=== PATIENT | male | born 1955 | race Caucasian/White ===

== ENCOUNTER 2017-09-24 21:59 | Inpatient (IN) | payer OTHER ==
[~2017-09-24] VITALS: Ht 167.6 cm; Wt 68.2 kg
[2017-09-25] VITALS (10 sets, daily range): BP systolic 91–129; BP diastolic 56–77; PULSE 99–115; RESP 17–20; TEMP 98.3; Ht 167.6 cm; Wt 68.2 kg
[2017-09-25] MEDS ORDERED: SOD CHLORIDE 0.9% 500 ML IV STA (01:38)
[2017-09-25 02:42] LABS: CALCIUM 8.7 mg/dl (8.4-10.2); CREATININE 1.57 mg/dl (0.61-1.24)
[2017-09-25 02:52] LABS: ABNORMAL IP MESSAGE 1; BASOPHIL # 0.1 10^3/ul (0.0-0.1); BASOPHILS % 0.3 % (0.0-2.0); HEMATOCRIT 42.4 % (42.0-52.0); HEMOGLOBIN 15.3 g/dl (14.0-18.0); LYMPHOCYTES # 0.4 10^3/ul (0.8-2.9); MEAN CORPUSCULAR HEMOGLOBIN 34.8 pg (29.0-33.0); MEAN CORPUSCULAR HGB CONC 36.1 g/dl (32.0-37.0); MEAN CORPUSCULAR VOLUME 96.4 fl (82.0-101.0); MEAN PLATELET VOLUME 11.4 fl (7.4-10.4); MONOCYTE # 0.5 10^3/ul (0.3-0.9); MONOCYTES % 2.6 % (0.0-11.0); NEUTROPHIL # 16.4 10^3/ul (1.6-7.5); NEUTROPHILS % 93.2 % (39.0-77.0); PLATELET COUNT 68 10^3/UL (140-415); POSITIVE DIFF @See below; RED CELL DISTRIBUTION WIDTH 14.1 % (11.5-14.5); WHITE BLOOD COUNT 17.6 10^3/ul (4.8-10.8)
[2017-09-25 02:54] LABS: TROPONIN-I 0.017 ng/ml (0.00-0.12)
[2017-09-25] MEDS ORDERED: SODIUM CHLORIDE 0.9% 1L BAG IV* STA (02:57)
[2017-09-25] MEDS ORDERED: CEFEPIME 2GM/50 ML (PMX) 50 ML IVPB ONE (03:02)
--- NOTE | 2017-09-25 03:29 | RADRPT ---
PROCEDURE: XR Chest. CLINICAL INDICATION: Dyspnea. TECHNIQUE: Single frontal view of the chest. COMPARISON: None. FINDINGS: Cardiomegaly and tortuous calcified thoracic aorta. Hypoinflated lungs accentuate pulmonary vascular markings. Mild vascular crowding at lung bases. The lungs are clear. No signs of pleural fluid or p neumothorax are seen. The osseous structures and soft tissues are unremarkable. IMPRESSION: 1. Hypoinflated lungs with mild vascular crowding at lung bases. 2. Otherwise, no acute process in the chest. RPTAT: [facility]U Physician Dez Date Time Electronically viewed and signed by Physician Dez on 09/25/2017 03:29 RS/
--- NOTE | 2017-09-25 03:29 | ERD ---
ER Documentation Chief Complaint Chief Complaint FEVER WITH SOB SINCE YESTERDAY. BODY ACHES. COUGH HPI Very pleasant 62-year-old male with fever shortness breath since yesterday. He does have body aches and productive cough. No nausea no vomiting no chills. Patient said he had alternating fevers and chills over the past 48 hours. Denies any other current complaints. ROS All systems reviewed and are negative except as per history of present illness. Allergies Allergies: Coded Allergies: No Known Allergy (Unverified , 09/24/17) PMhx/Soc Medical and Surgical Hx: pt denies Surgical Hx History of Surgery: No Anesthesia Reaction: No Hx Neurological Disorder: No Hx Respiratory Disorders: No Hx Cardiac Disorders: No Hx Psychiatric Problems: No Hx Miscellaneous Medical Probl: Yes (DM) Hx Alcohol Use: No Hx Substance Use: No Hx Tobacco Use: Yes (2 sticks/day) Smoking Status: Current every day smoker Physical Exam Vitals Vital Signs Date Time Temp Pulse Resp B/P Pulse Ox O2 Delivery O2 Flow Rate FiO2 09/25/17 03:24 98.3 108 20 92/64 98 Nasal Cannula 2.0 09/25/17 02:04 98.6 115 20 85/63 96 Nasal Cannula 2.0 09/25/17 02:01 Nasal Cannula 2 09/25/17 01:05 101.0 122 28 88/58 96 Room Air 09/24/17 22:27 103.5 130 28 133/74 96 Physical Exam Const: [] Head: Atraumatic Eyes: Normal Conjunctiva ENT: Normal External Ears, Nose and Mouth. Neck: Full range of motion..~ No meningismus. Resp: Clear to auscultation bilaterally Cardio: Regular rate and rhythm, no murmurs Abd: Soft, non tender, non distended. Normal bowel sounds Skin: No petechiae or rashes Back: No midline or flank tenderness Ext: No cyanosis, or edema Neur: Awake and alert Psych: Normal Mood and Affect Result Diagram: 09/25/1713909/25/17139 Results 24 hrs Laboratory Tests Test 09/25/17 01:40 White Blood Count 17.610^3/ul Red Blood Count 4.4010^6/ul Hemoglobin 15.3g/dl Hematocrit 42.4% Mean Corpuscular Volume 96.4fl Mean Corpuscular Hemoglobin 34.8pg Mean Corpuscular Hemoglobin Concent 36.1g/dl Red Cell Distribution Width 14.1% Platelet Count 6810^3/UL Mean Platelet Volume 11.4fl Neutrophils % 93.2% Lymphocytes % 2.0% Monocytes % 2.6% Eosinophils % 0.0% Basophils % 0.3% Nucleated Red Blood Cells % 0.0/100WBC Neutrophils # 16.410^3/ul Lymphocytes # 0.410^3/ul Monocytes # 0.510^3/ul Eosinophils # 0.010^3/ul Basophils # 0.110^3/ul Nucleated Red Blood Cells # 0.010^3/ul Sodium Level 135mmol/L Potassium Level 3.0mmol/L Chloride Level 105mmol/L Carbon Dioxide Level 16mmol/L Anion Gap 17 Blood Urea Nitrogen 21mg/dl Creatinine 1.57mg/dl Glucose Level 262mg/dl Lactic Acid Level 6.0mmol/L Calcium Level 8.7mg/dl Troponin I 0.017ng/ml Current Medications Medications (Trade) Dose Ordered Sig/Vu Route PRN Reason Start Time Stop Time Status Last Admin Dose Admin Sodium Chloride (NS) 500 ml @ 500 mls/hr Q1H STAT IV 09/25/17 01:38 09/25/17 02:37 DC 09/25/17 01:59 Sodium Chloride 2120 ml 2,120 ml BOLUS OVER 2 HOURS STAT IV* 09/25/17 02:57 09/25/17 03:03 DC 09/25/17 03:06 Cefepime HCl 50 ml @ 100 mls/hr ONCE ONCE IVPB 09/25/17 03:02 09/25/17 03:31 09/25/17 03:06 Vancomycin HCl (Vancocin) 250 ml @ 125 mls/hr ONCE ONCE IVPB 09/25/17 03:30 09/25/17 05:29 Procedures/MDM EKG: Rate/Rhythm: [Normal Sinus Rhythm] QRS, ST, T-waves: [No changes consistent w/ acute ischemia] Impression: [No evidence of ischemia or arrhythmia] Chest X-ray 1V Interpreted by me: Soft Tissue: No acute abnormalities Bones: No acute abnormalities Mediastinum/Cardiac Silhouette/Lungs: [No acute abnormalities] Patient's infectious symptoms have not stabilized and the patient is at risk of rapid decompensation. The patient will be admitted for careful hydration, antibiotic therapy, and infectious source control. Severe Sepsis Assessment: Infectious Source: Unknown End organ damage indicated by: [Lactate > 2.0 mmol/L Severe Sepsis Managment: Blood Cultures X 2 before broad spectrum antibiotics initiated within 3 hours of recognition. 30 ml/kg NS bolus Completed Initial Lactate: 6.0 Repeat Lactate pending Critical Care: Time: 45 minutes Treatments/Evaluations: Emergent fluid management, while maintaining close respiratory support. Immediate broad spectrum antibiotic therapy. Simultaneous assessment for possible sources in order to direct therapy. Consideration for invasive and chemical support to prevent respiratory or cardiac collapse. Septic Shock Assessment (1 hour post 30 ml/kg fluid bolus): Hypotension (SBP < 90 or 40 mmHg drop, MAP < 65): [No] Lactic acid > 4.0 yes Perfusion Reassessment for Septic Shock: Temp [98.6, Pulse [94, RR 16, BP 104/71 Heart Exam: [Tachycardic] Lung Exam: [No Crackles] Capillary Refill: [Delayed] Peripheral Pulses: [Radially present] Skin: [Mottled, pale] Accepting Care Team: Current data and ongoing care discussed. Time: 3 am Primary Provider: Hospitalist Consulting: [XOXOXO] Outstanding Data: none Departure Diagnosis: Primary Impression: Sepsis Sepsis type: sepsis due to unspecified organism Qualified Code: A41.9 - Sepsis, due to unspecified organism Condition: Stable SUSAN NGUYEN Sep 25, 2017 03:29
[2017-09-25] MEDS ORDERED: VANCOMYCIN 1 GM (PMX) 250 ML IVPB ONE (03:30)
[2017-09-25] MEDS ORDERED: IBUP-1542 PO (03:54)
[2017-09-25] MEDS ORDERED: GLIP5TAB13 PO (03:54)
[2017-09-25] MEDS ORDERED: METF500T4 PO (03:54)
[2017-09-25] MEDS ORDERED: POTASSIUM CHLORIDE (SR) 20 MEQ TAB PO ONE (06:25)
[2017-09-25] MEDS ORDERED: GLUCOSE GEL 15 GRAM TUBE PO PRN ×2 (06:30)
[2017-09-25] MEDS ORDERED: ALBUTEROL/IPRATROPIUM (NEB) 3 ML AMP HHN PRN (06:30)
[2017-09-25] MEDS ORDERED: GLUCAGON 1 MG INJ IM PRN (06:30)
[2017-09-25] MEDS ORDERED: GLUCOSE GEL 15 GRAM TUBE BUCCAL PRN (06:30)
[2017-09-25] MEDS: SOD CHLORIDE 0.9% 1,000 ML IV SCH ×2 (06:30→16:11)
[2017-09-25] MEDS ORDERED: NACL 0.9% 3 ML SYG IV SCH (06:30)
[2017-09-25] MEDS ORDERED: DEXTROSE 50% 50 ML SYRINGE IV PRN ×2 (06:30)
--- NOTE | 2017-09-25 06:43 | HP ---
Date/Time of Note Date/Time of Note DATE: 09/25/17 TIME: 06:35 Assessment/Plan VTE Prophylaxis VTE Prophylaxis Intervention: SCD's Assessment/Plan Assessment/Plan 1. Sepsis, as evidenced by fever, leukocytosis and tachycardia with lactic acidosis, most likely secondary to URI vs early pneumonia -IV antibiotics -IV fluid -Follow-up culture results including respiratory culture if possible -Breathing treatments as needed -Check for influenza A & B 2. Presumed acute kidney injury -Continue IV fluid for now -If no improvement in a.m., will obtain a renal ultrasound and nephrology consult 3. Metabolic acidosis, secondary to above -Continue IV fluids and antibiotics 4 Diabetes, with hyperglycemia -Check A1c -Insulin while in-house 5. Hypokalemia -Replete 6. Thrombocytopenia, possibly ITP vs related to sepsis -Start workup with abdominal ultrasound for evaluation of splenomegaly -Additional workup as needed HPI/ROS Admit Date/Time Admit Date/Time Hx of Present Illness This is a 62-year-old male with a history of diabetes who presented to the emergency department complaining of shortness of breath, fever and cough 1 day. Cough is productive of yellowish/brownish sputum. Denied chest pain, nausea or vomiting. When he presented to the ER, he was febrile with a temperature of 103.5 and a tachycardic with a heart rate of 130. BP was within acceptable range. Labs shows a WBC of 17.6, PLT 68, bicarb 16, potassium 3, creatinine 1.57, glucose 262. Initial lactic acid was 6 which trended down to 3.1. Chest x-ray shows hypoinflated lungs with mild vascular crowding at lung bases. Urinalysis is pending. . PMH/Family/Social Social History Smoking Status: Current every day smoker Exam/Review of Systems Vital Signs Vitals Vital Signs Date Time Temp Pulse Resp B/P Pulse Ox O2 Delivery O2 Flow Rate FiO2 09/25/17 05:34 98.3 104 18 86/64 96 Nasal Cannula 2.0 Exam Constitutional: alert, oriented, well developed Head: atraumatic, normocephalic Eyes: EOMI Respiratory: diminished breath sounds Cardiovascular: other (Tachycardic with regular rhythm) Gastrointestinal: non-tender, soft Extremities: normal pulses Labs Result Diagram: 09/25/1713909/25/17139 Medications Medications Current Medications Sodium Chloride (NS) 1,000 ml @ 100 mls/hr Q10H IV Last administered on t 06:30; Admin Dose 100 MLS/HR; Start 09/25/17 at 06:11; Stop 09/26/17 at 23:00 Acetaminophen (Tylenol Tab) 650 mg Q6H PRN PO PAIN LEVEL 1-3 OR FEVER; Start 09/25/17 at 06:30 Morphine Sulfate 2 mg 2 mg Q4H PRN IV SEVERE PAIN LEVEL 7-10; Start 09/25/17 at 06:30 Levofloxacin/ Dextrose (Levaquin 500mg/ D5W 100 ml (Pmx)) 100 ml @ 100 mls/hr DAILY IVPB ; Start 09/25/17 at 09:00 Diagnostic Test (Pha) (Accu-Chek) 1 ea 02 XX ; Start 09/26/17 at 02:00 Insulin Glargine (Lantus) 12 unit DAILY@08 SC ; Start 09/25/17 at 08:00; Status UNV Miscellaneous Information 1 ea NOTE XX ; Start 09/25/17 at 06:30 Glucose (Glutose) 15 gm Q15M PRN PO DECREASED GLUCOSE; Start 09/25/17 at 06:30 Glucose (Glutose) 22.5 gm Q15M PRN PO DECREASED GLUCOSE; Start 09/25/17 at 06: 30 Dextrose (D50w Syringe) 25 ml Q15M PRN IV DECREASED GLUCOSE; Start 09/25/17 at 06:30 Dextrose (D50w Syringe) 50 ml Q15M PRN IV DECREASED GLUCOSE; Start 09/25/17 at 06:30 Glucagon (Glucagen) 1 mg Q15M PRN IM DECREASED GLUCOSE; Start 09/25/17 at 06: 30 Glucose (Glutose) 15 gm Q15M PRN BUCCAL DECREASED GLUCOSE; Start 09/25/17 at 06:30 SUSAN DE DIOS MD Sep 25, 2017 06:43
[2017-09-25] MEDS ORDERED: SOD CHLORIDE 0.9% 500 ML IV ONE (08:00)
[2017-09-25] MEDS: INSULIN ASPART [NOVOLOG] 3 ML PEN SC SCH ×7 (08:00→21:00)
[2017-09-25] MEDS: INSULIN GLARGINE [LANtus] 3 ML PEN SC SCH (08:00)
[2017-09-25 08:33] LABS: ABNORMAL IP MESSAGE 1; BASOPHIL # 0.1 10^3/ul (0.0-0.1); BASOPHILS % 0.3 % (0.0-2.0); EOSINOPHILS % 0.1 % (0.0-7.0); HEMATOCRIT 38.4 % (42.0-52.0); HEMOGLOBIN 13.6 g/dl (14.0-18.0); LYMPHOCYTES # 0.6 10^3/ul (0.8-2.9); LYMPHOCYTES % 3.1 % (15.0-51.0); MEAN CORPUSCULAR HEMOGLOBIN 34.9 pg (29.0-33.0); MEAN CORPUSCULAR HGB CONC 35.4 g/dl (32.0-37.0); MEAN CORPUSCULAR VOLUME 98.5 fl (82.0-101.0); MONOCYTE # 1.1 10^3/ul (0.3-0.9); MONOCYTES % 5.4 % (0.0-11.0); NEUTROPHIL # 17.5 10^3/ul (1.6-7.5); PLATELET COUNT 57 10^3/UL (140-415); POSITIVE DIFF @See below; RED CELL DISTRIBUTION WIDTH 14.3 % (11.5-14.5); WHITE BLOOD COUNT 19.4 10^3/ul (4.8-10.8)
[2017-09-25 09:00] LABS: ALBUMIN 2.3 g/dl (3.3-4.9); ALBUMIN/GLOBULIN RATIO 0.58; BILIRUBIN,DIRECT 0.6 mg/dl (0.00-0.20); BILIRUBIN,INDIRECT 1.8 mg/dl (0-1.1); BILIRUBIN,TOTAL 2.4 mg/dl (0.2-1.3); CALCIUM 7.3 mg/dl (8.4-10.2); CREATININE 1.27 mg/dl (0.61-1.24); MAGNESIUM 1.2 mg/dl (1.7-2.5); PHOSPHORUS 3.5 mg/dl (2.5-4.9); POTASSIUM 3.7 mmol/L (3.5-5.1); TOTAL PROTEIN 6.2 g/dl (6.1-8.1)
[2017-09-25] MEDS: LEVOFLOXACIN 500MG/D5W (PMX) 100 ML IVPB SCH (09:39)
--- NOTE | 2017-09-25 11:45 | CONS ---
Date/Time of Note Date/Time of Note DATE: 09/25/17 TIME: 11:44 Assessment/Plan Assessment/Plan Additional Assessment/Plan 1. Acute kidney injury Non oliguric Due to ATN from sepsis 2. Sepsis 3. Metabolic acidosis 4. hypokalemia 5. Diabetes melitus with Hyperglycemia 6. Thrombocytopenia Plan : pt received IVF NS, IV abx cefepime and vancomycin in ED< now on IV levaquin, renally dose all abx Expecting Cr to improve with IV fluids and IV abx treatment NO need for renal US at this time, we will monitor it WORK UP FOR thrombocytopenia as per PMD will continue to follow up, HIV< hepatitis panel, Consultation Date/Type/Reason Admit Date/Time 09/25/2017 Date of Consultation: Sep 25, 2017 Type of Consultation: NEPHROLOGY Reason for Consultation acute kidney injury, Metabolic acidosis Referring Provider: SUSAN DE DIOS MD Hx of Present Illness 62-year-old male with a history of diabetes came with shortness of breath, fever and cough 1 day. pt was febrile with Temp 103.5 and a tachycardic with a heart rate of 130. Labs shows a WBC of 17.6, PLT 68, bicarb 16, potassium 3, creatinine 1.57, glucose 262. Initial lactic acid was 6 which trended down to 3.1. Chest x-ray shows hypoinflated lungs with mild vascular crowding at lung bases. Renal has been consulted for MELISSA, Metabolic acidosis. . Constitutional: no complaints Eyes: no complaints ENT: congestion Respiratory: cough, pleuritic pain, shortness of breath Gastrointestinal: no complaints Genitourinary: dysuria Musculoskeletal: back pain Skin: no complaints Neurologic: no complaints Endocrine: no complaints Lymphatic: no complaints Psychological: no complaints Immunologic: no complaints Past Medical History Medical History: diabetes, hypertension Past Surgical History Past Surgical Hx: no surgical history Family History Significant Family History: no pertinent family hx Social History Alcohol Use: none Smoking Status: Current every day smoker Drug Use: none Exam/Review of Systems Vital Signs Vitals Vital Signs Date Time Temp Pulse Resp B/P Pulse Ox O2 Delivery O2 Flow Rate FiO2 09/25/17 11:22 98.2 98 17 99/62 96 09/25/17 07:19 Room Air 09/25/17 05:34 2.0 Exam Constitutional: alert Psych: no complaints Head: normocephalic Eyes: nl conjunctiva ENMT: nl external ears & nose Neck: non-tender, supple Respiratory: clear to auscultation, diminished breath sounds, normal air movement Cardiovascular: other (tachycardia ), regular rate and rhythm Gastrointestinal: non-tender, soft Musculoskeletal: nl extremities to inspection, nl gait and stance Extremities: normal pulses Neurological: [employer] II-XII intact, nl mental status, nl speech, nl strength Results Result Diagram: 09/25/17 0757 09/25/17 0757 Results 24 hrs Laboratory Tests Test 09/25/17 01:40 09/25/17 04:10 09/25/17 05:37 09/25/17 07:57 White Blood Count 17.6 H 19.4 H Red Blood Count 4.40 L 3.90 L Hemoglobin 15.3 13.6 L Hematocrit 42.4 38.4 L Mean Corpuscular Volume 96.4 98.5 Mean Corpuscular Hemoglobin 34.8 H 34.9 H Mean Corpuscular Hemoglobin Concent 36.1 35.4 Red Cell Distribution Width 14.1 14.3 Platelet Count 68 L 57 L Mean Platelet Volume 11.4 H 12.0 H Neutrophils % 93.2 H 90.0 H Lymphocytes % 2.0 L 3.1 L Monocytes % 2.6 5.4 Eosinophils % 0.0 0.1 Basophils % 0.3 0.3 Nucleated Red Blood Cells % 0.0 0.0 Neutrophils # 16.4 H 17.5 H Lymphocytes # 0.4 L 0.6 L Monocytes # 0.5 1.1 H Eosinophils # 0.0 0.0 Basophils # 0.1 0.1 Nucleated Red Blood Cells # 0.0 0.0 Sodium Level 135 139 Potassium Level 3.0 L 3.7 Chloride Level 105 111 H Carbon Dioxide Level 16 L 21 Anion Gap 17 H 11 Blood Urea Nitrogen 21 H 21 H Creatinine 1.57 H 1.27 H Glucose Level 262 H 172 Lactic Acid Level 6.0 *H 3.1 *H 3.1 *H Calcium Level 8.7 7.3 L Troponin I 0.017 Hemoglobin A1c 7.4 H Phosphorus Level 3.5 Magnesium Level 1.2 L Total Bilirubin 2.4 H Direct Bilirubin 0.60 H Indirect Bilirubin 1.8 H Aspartate Amino Transf (AST/SGOT) 37 Alanine Aminotransferase (ALT/SGPT) 38 Alkaline Phosphatase 67 Total Protein 6.2 Albumin 2.3 L Globulin 3.90 H Albumin/Globulin Ratio 0.58 Test 09/25/17 09:43 Bedside Glucose 143 Medications Medications Current Medications Sodium Chloride (NS) 1,000 ml @ 100 mls/hr Q10H IV Last administered on 06:30; Admin Dose 100 MLS/HR; Start 09/25/17 at 06:11; Stop 09/26/17 at 23:00 Acetaminophen (Tylenol Tab) 650 mg Q6H PRN PO PAIN LEVEL 1-3 OR FEVER; Start 09/25/17 at 06:30 Morphine Sulfate 2 mg 2 mg Q4H PRN IV SEVERE PAIN LEVEL 7-10; Start 09/25/17 at 06:30 Levofloxacin/ Dextrose (Levaquin 500mg/ D5W 100 ml (Pmx)) 100 ml @ 100 mls/hr DAILY IVPB Last administered on 09/25/17 09:39; Admin Dose 100 MLS/HR; Start 09/25/17 at 09:00 Diagnostic Test (Pha) (Accu-Chek) 1 ea 02 XX ; Start 09/26/17 at 02:00 Insulin Glargine (Lantus) 12 unit DAILY@08 SC Last administered on 09/25/17 08:00; Admin Dose 12 UNIT; Start 09/25/17 at 08:00 Miscellaneous Information 1 ea NOTE XX ; Start 09/25/17 at 06:30 Glucose (Glutose) 15 gm Q15M PRN PO DECREASED GLUCOSE; Start 09/25/17 at 06:30 Glucose (Glutose) 22.5 gm Q15M PRN PO DECREASED GLUCOSE; Start 09/25/17 at 06: 30 Dextrose (D50w Syringe) 25 ml Q15M PRN IV DECREASED GLUCOSE; Start 09/25/17 at 06:30 Dextrose (D50w Syringe) 50 ml Q15M PRN IV DECREASED GLUCOSE; Start 09/25/17 at 06:30 Glucagon (Glucagen) 1 mg Q15M PRN IM DECREASED GLUCOSE; Start 09/25/17 at 06: 30 Glucose (Glutose) 15 gm Q15M PRN BUCCAL DECREASED GLUCOSE; Start 09/25/17 at 06:30 ALAN DAHL MD Sep 25, 2017 11:45
[2017-09-25 14:08] LABS: HAAIG REFLEX REFLEX FILED
[2017-09-25 14:58] LABS: COLLAGEN/ADP 164 Secs. (40-147)
[2017-09-25] MEDS: morphine 2 MG INJ IV PRN ×2 (15:25→22:21)
[2017-09-25 15:34] LABS: HEPATITIS B CORE ANTIBODY NEGATIVE (NEGATIVE)
[2017-09-25 15:50] LABS: FOLATE 5.2 ng/ml (2.8-20.0)
[2017-09-25] MEDS: ACETAMINOPHEN 325 MG TAB PO PRN (22:21)
[2017-09-26] VITALS (12 sets, daily range): BP systolic 115–133; BP diastolic 69–85; PULSE 89–102; RESP 17–20
[2017-09-26] MEDS: ACCU-CHEK XX SCH (00:08)
[2017-09-26] MEDS: morphine 2 MG INJ IV PRN ×2 (02:21→07:05)
[2017-09-26] MEDS: SOD CHLORIDE 0.9% 1,000 ML IV SCH ×3 (02:22→21:45)
[2017-09-26] MEDS: ACETAMINOPHEN 325 MG TAB PO PRN ×3 (07:05→21:53)
[2017-09-26] MEDS: INSULIN ASPART [NOVOLOG] 3 ML PEN SC SCH ×7 (07:55→21:00)
[2017-09-26 08:24] LABS: ABNORMAL IP MESSAGE 1; BASOPHIL # 0.1 10^3/ul (0.0-0.1); BASOPHILS % 0.5 % (0.0-2.0); EOSINOPHILS % 0.2 % (0.0-7.0); HEMATOCRIT 38.9 % (42.0-52.0); LYMPHOCYTES # 0.7 10^3/ul (0.8-2.9); LYMPHOCYTES % 7.5 % (15.0-51.0); MEAN CORPUSCULAR HEMOGLOBIN 34.9 pg (29.0-33.0); MONOCYTES % 9.9 % (0.0-11.0); NEUTROPHIL # 7.8 10^3/ul (1.6-7.5); NEUTROPHILS % 81.4 % (39.0-77.0); PLATELET COUNT 51 10^3/UL (140-415); POSITIVE DIFF @See below; RED BLOOD COUNT 4.01 10^6/ul (4.70-6.10); RED CELL DISTRIBUTION WIDTH 14.3 % (11.5-14.5); WHITE BLOOD COUNT 9.6 10^3/ul (4.8-10.8)
[2017-09-26] MEDS: LEVOFLOXACIN 500MG/D5W (PMX) 100 ML IVPB SCH (08:29)
[2017-09-26 08:36] LABS: CALCIUM 7.7 mg/dl (8.4-10.2); CREATININE 0.81 mg/dl (0.61-1.24); MAGNESIUM 1.3 mg/dl (1.7-2.5); PHOSPHORUS 2.6 mg/dl (2.5-4.9); POTASSIUM 3.2 mmol/L (3.5-5.1)
--- NOTE | 2017-09-26 08:42 | RADRPT ---
PROCEDURE: US Abdomen and Retroperitoneum. CLINICAL INDICATION: Abdominal pain. TECHNIQUE: Multiple real-time longitudinal and transverse images were acquired of the patient's ab domen and retroperitoneum utilizing a curved array transducer. COMPARISON: 09/26/2017. FINDINGS: The liver is normal in size and normal in echogenicity. The liver has a normal smooth surface. Ther e is no focal hepatic lesion. Color Doppler and pulsed Doppler sonography demonstrate normal antegra de flow in the portal vein. The gallbladder is normal with no stones or wall thickening. The bile ducts are normal with the common bile duct measuring 7.1 mm in diameter. The spleen is normal in size. There is no focal splenic lesion. The pancreas and abdominal aorta are not visualized due to overlying bowel gas. There is no ascites. There is a right pleural effusion. The right kidney measures 11.3 cm and the left kidney measures 12.1 cm. There is no renal mass. There is no hydronephrosis or calculus. IMPRESSION: 1. Pancreas and abdominal aorta not visualized. 2. Right pleural effusion. 3. Otherwise normal ultrasound of the abdomen and retroperitoneum. RPTAT: QQ .Stevie Gore MD, Date Time Electronically viewed and signed by .Stevie Gore MD, on 09/26/2017 08:28 .R/
[2017-09-26] MEDS: INSULIN GLARGINE [LANtus] 3 ML PEN SC SCH (08:44)
[2017-09-26] MEDS ORDERED: VANCOMYCIN IV PER PHARMACY XX SCH (11:00)
--- NOTE | 2017-09-26 11:19 | PN ---
Date/Time of Note Date/Time of Note DATE: 09/26/17 TIME: 11:11 Assessment/Plan VTE Prophylaxis VTE Prophylaxis Intervention: ambulation Lines/Catheters IV [facility]ter Type (from [facility]): Peripheral IV Urinary Cath still in place: No Assessment/Plan Chief Complaint/Hosp Course 62-year-old male with a history of diabetes presented with shortness of breath, fever and cough 1 day. 1. Status post sepsis with gram-negative bacteremia, unknown etiology. Most likely suspected pneumonia. -Change antibiotics to Zosyn/vancomycin. Follow-up final cultures. 2. Right pleural effusion per chest x-ray with possible superimposed pneumonia. -Obtain a CT chest to reevaluate. 3. Acute kidney injury, prerenal, secondary to hemodynamics. Resolved. -Continue to monitor. 4 . Type 2 diabetes. A1c 7.4. -Continue Accu-Cheks/ISS. 5. Thrombocytopenia, likely ITP. Patient also reported a history of liver cirrhosis. His abdominal ultrasound is currently stable. -Recommended outpatient hematology follow-up. Currently, patient does not require any plateletpheresis and he does not have any bleeding episodes. 6. Transaminase elevation with hyperbilirubinemia. Stable ultrasound. Abdominal exam benign. -Repeat LFTs in a.m. -Recommend outpatient GI evaluation. 7. Hypokalemia with hypomagnesemia. -Replete and monitor. Plan: Patient will be kept in-house. Follow-up with cultures and CT findings. Patient was seen in collaboration with . Problems: Subjective 24 Hr Interval Summary Free Text/Dictation Overall, patient is feeling better. He is ambulating without any difficulties. Patient denied chest pain, palpitation, shortness of breath, cough, fever or other difficulties. Exam/Review of Systems Vital Signs Vitals Vital Signs Date Time Temp Pulse Resp B/P Pulse Ox O2 Delivery O2 Flow Rate FiO2 09/26/17 08:33 102 09/26/17 07:23 99.9 17 121/69 99 09/25/17 07:19 Room Air 09/25/17 05:34 2.0 Intake and Output 09/25/17 09/25/17 09/26/17 15:00 23:00 07:00 Intake Total 100 ml 500 ml 1000 ml Balance 100 ml 500 ml 1000 ml Exam General: Well developed,adequately built, not in any acute distress . HEENT: Normocephalic, Atraumatic, No laceration or hematoma; Eyes: PEERL, Conjunctiva clear, Anicteric sclera Neck: Supple without any lymphadenopathy, nontender, no JVD, no carotid bruits, trachea midline, no thyromegaly Cardiac: S1, S2 auscultated, regular rhythm and rate, no mumurs or gallop Pulmonary: Diminished breath sounds right upper and lower lobes. Normal respiratory effort. Chest clear to auscultation bilaterally, no adventitious breath sounds GI: Abdomen normal to inspection. Soft, non tender, non- distended, no masses, no rebound tenderness or guarding. Bowel sounds active on all four quadrants Genitourinary: Deferred Extremities: No cyanosis, clubbing, or edema. Pulses [2+] bilaterally. Full ROM on all four extremities. No focal weakness appreciated. Neurologic: Alert to person, place, time, and situation. Affect appropriate, intact sensation. Skin: Clean,dry, and intact. No ecchymosis, no rashes, or lesions Results Result Diagram: 09/26/17 0722 09/26/17 07 Results 24 hrs Laboratory Tests Test 09/25/17 12:45 09/25/17 13:20 09/25/17 17:42 09/25/17 20:23 Bedside Glucose 111 95 156 Platelet Func Collagen/Epinephrine 224 H Platelet Function Collagen/ADP 164 H Lactic Acid Level 2.7 *H Vitamin B12 Level 863 Folate 5.2 Hepatitis B Surface Antigen NEGATIVE Hepatitis B Core Total Antibody NEGATIVE Hepatitis C Antibody NEGATIVE HIV (1&2) Antibody NEGATIVE Test 09/26/17 07:22 09/26/17 08:28 White Blood Count 9.6 # Red Blood Count 4.01 L Hemoglobin 14.0 Hematocrit 38.9 L Mean Corpuscular Volume 97.0 Mean Corpuscular Hemoglobin 34.9 H Mean Corpuscular Hemoglobin Concent 36.0 Red Cell Distribution Width 14.3 Platelet Count 51 L Mean Platelet Volume 12.0 H Neutrophils % 81.4 H Lymphocytes % 7.5 L Monocytes % 9.9 Eosinophils % 0.2 Basophils % 0.5 Nucleated Red Blood Cells % 0.0 Neutrophils # 7.8 H Lymphocytes # 0.7 L Monocytes # 1.0 H Eosinophils # 0.0 Basophils # 0.1 Nucleated Red Blood Cells # 0.0 Sodium Level 139 Potassium Level 3.2 L Chloride Level 110 Carbon Dioxide Level 22 Anion Gap 10 Blood Urea Nitrogen 11 # Creatinine 0.81 Glucose Level 113 # Lactic Acid Level 2.0 Calcium Level 7.7 L Phosphorus Level 2.6 Magnesium Level 1.3 L Bedside Glucose 122 Medications Medications Current Medications Sodium Chloride (NS) 1,000 ml @ 100 mls/hr Q10H IV Last administered on 02:22; Admin Dose 100 MLS/HR; Start 09/25/17 at 06:11; Stop 09/26/17 at 23:00 Acetaminophen (Tylenol Tab) 650 mg Q6H PRN PO PAIN LEVEL 1-3 OR FEVER Last administered on 09/26/17 07:05; Admin Dose 650 MG; Start 09/25/17 at 06:30 Morphine Sulfate (morphine) 2 mg Q4H PRN IV SEVERE PAIN LEVEL 7-10 Last administered on 09/26/17 07:05; Admin Dose 2 MG; Start 09/25/17 at 06:30 Diagnostic Test (Pha) (Accu-Chek) 1 ea 02 XX ; Start 09/26/17 at 02:00 Insulin Glargine (Lantus) 12 unit DAILY@08 SC Last administered on 09/26/17 08:44; Admin Dose 12 UNIT; Start 09/25/17 at 08:00 Miscellaneous Information 1 ea NOTE XX ; Start 09/25/17 at 06:30 Glucose (Glutose) 15 gm Q15M PRN PO DECREASED GLUCOSE; Start 09/25/17 at 06:30 Glucose (Glutose) 22.5 gm Q15M PRN PO DECREASED GLUCOSE; Start 09/25/17 at 06: 30 Dextrose (D50w Syringe) 25 ml Q15M PRN IV DECREASED GLUCOSE; Start 09/25/17 at 06:30 Dextrose (D50w Syringe) 50 ml Q15M PRN IV DECREASED GLUCOSE; Start 09/25/17 at 06:30 Glucagon (Glucagen) 1 mg Q15M PRN IM DECREASED GLUCOSE; Start 09/25/17 at 06: 30 Glucose 15 gm 15 gm Q15M PRN BUCCAL DECREASED GLUCOSE; Start 09/25/17 at 06:30 Magnesium Sulfate 100 ml @ 25 mls/hr ONCE ONCE IVPB ; Start 09/26/17 at 11:00 ; Stop 09/26/17 at 14:59; Status UNV Piperacillin Sod/ Tazobactam Sod (Zosyn 3.375gm/ 100 ml (Pmx)) 100 ml @ 200 mls /hr Q8 IVPB ; Start 09/26/17 at 14:00; Status UNV LORELEI RIOS V[employer] Sep 26, 2017 11:19
[2017-09-26] MEDS ORDERED: POTASSIUM CHLORIDE (SR) 20 MEQ TAB PO STA (11:25)
[2017-09-26] MEDS: PIPER-TAZO 3.375 GM IV (PMX) 100 ML IVPB SCH ×2 (12:12→21:46)
[2017-09-26] MEDS: VANCOMYCIN 1 GM in NS 250 ML IVPB SCH (12:12)
[2017-09-26] MEDS ORDERED: MAGNESIUM SULFATE 4 GM/100 ML 100 ML IVPB ONE (12:30)
[2017-09-26] MEDS ORDERED: POTASSIUM CHLORIDE 20 MEQ in SOD CHLORIDE 0.9% 100 ML IVPB SCH (13:00)
--- NOTE | 2017-09-26 17:20 | CONS ---
Date/Time of Note Date/Time of Note DATE: 09/26/17 TIME: 17:17 Assessment/Plan Assessment/Plan Chief Complaint/Hosp Course 62-year-old male with a history of diabetes came with shortness of breath, fever and cough 1 day. pt was febrile with Temp 103.5 and a tachycardic with a heart rate of 130. Labs shows a WBC of 17.6, PLT 68, bicarb 16, potassium 3, creatinine 1.57, glucose 262. Initial lactic acid was 6 which trended down to 3.1. Chest x-ray shows hypoinflated lungs with mild vascular crowding at lung bases. Renal has been consulted for MELISSA, Metabolic acidosis. . Problems: Additional Assessment/Plan 1. Acute kidney injury Non oliguric Due to ATN from sepsis 2. Sepsis due to bactermia with blood cx growing gram negative rods 3. Metabolic acidosis 4. hypokalemia 5. Diabetes melitus with Hyperglycemia 6. Thrombocytopenia Plan : abx switched to IV zosyn, Cr normal , Blood cx growing gram negative rods Consider CT chest without contrast to better assess for pelural effusion magnesium sulfate 2 gram IV x 1, KCL 20mEQ IV x 1 in addition to PO replacement NO need for renal US at this time, we will monitor it WORK UP FOR thrombocytopenia as per PMD will continue to follow up, HIV< hepatitis panel, Consultation Date/Type/Reason Admit Date/Time Sep 25, 2017 at 03:29 Initial Consult Date 09/25/17 Type of Consultation: NEPHROLOGY Referring Provider: SUSAN DE DIOS MD 24 HR Interval Summary Free Text/Dictation Cr improved to normal, K low, Blood cx growing gram negative rods Exam/Review of Systems Vital Signs Vitals Vital Signs Date Time Temp Pulse Resp B/P Pulse Ox O2 Delivery O2 Flow Rate FiO2 09/26/17 16:24 89 09/26/17 15:24 98.1 17 133/85 97 09/25/17 07:19 Room Air 09/25/17 05:34 2.0 Intake and Output 09/25/17 09/25/17 09/26/17 15:00 23:00 07:00 Intake Total 100 ml 500 ml 1000 ml Balance 100 ml 500 ml 1000 ml Exam Constitutional: alert Respiratory: clear to auscultation, diminished breath sounds, normal air movement Cardiovascular: other (tachycardia ), regular rate and rhythm Gastrointestinal: non-tender, soft Musculoskeletal: nl extremities to inspection, nl gait and stance Extremities: normal pulses Neurological: PATIENT PLACEMENT COORDINATOR II-XII intact, nl mental status, nl speech, nl strength Results Result Diagram: 09/26/1772109/26/17721 Results 24 hrs Laboratory Tests Test 09/25/17 17:42 09/25/17 20:23 09/26/17 07:22 09/26/17 08:28 Bedside Glucose 95 156 122 White Blood Count 9.6 # Red Blood Count 4.01 L Hemoglobin 14.0 Hematocrit 38.9 L Mean Corpuscular Volume 97.0 Mean Corpuscular Hemoglobin 34.9 H Mean Corpuscular Hemoglobin Concent 36.0 Red Cell Distribution Width 14.3 Platelet Count 51 L Mean Platelet Volume 12.0 H Neutrophils % 81.4 H Lymphocytes % 7.5 L Monocytes % 9.9 Eosinophils % 0.2 Basophils % 0.5 Nucleated Red Blood Cells % 0.0 Neutrophils # 7.8 H Lymphocytes # 0.7 L Monocytes # 1.0 H Eosinophils # 0.0 Basophils # 0.1 Nucleated Red Blood Cells # 0.0 Sodium Level 139 Potassium Level 3.2 L Chloride Level 110 Carbon Dioxide Level 22 Anion Gap 10 Blood Urea Nitrogen 11 # Creatinine 0.81 Glucose Level 113 # Lactic Acid Level 2.0 Calcium Level 7.7 L Phosphorus Level 2.6 Magnesium Level 1.3 L Test 09/26/17 12:15 Bedside Glucose 148 Medications Medications Current Medications Sodium Chloride (NS) 1,000 ml @ 100 mls/hr Q10H IV Last administered on 12:14; Admin Dose 100 MLS/HR; Start 09/25/17 at 06:11; Stop 09/26/17 at 23:00 Acetaminophen (Tylenol Tab) 650 mg Q6H PRN PO PAIN LEVEL 1-3 OR FEVER Last administered on 09/26/17 14:15; Admin Dose 650 MG; Start 09/25/17 at 06:30 Morphine Sulfate (morphine) 2 mg Q4H PRN IV SEVERE PAIN LEVEL 7-10 Last administered on 09/26/17 07:05; Admin Dose 2 MG; Start 09/25/17 at 06:30 Diagnostic Test (Pha) (Accu-Chek) 1 ea 02 XX ; Start 09/26/17 at 02:00 Insulin Glargine (Lantus) 12 unit DAILY@08 SC Last administered on 09/26/17 08:44; Admin Dose 12 UNIT; Start 09/25/17 at 08:00 Miscellaneous Information 1 ea NOTE XX ; Start 09/25/17 at 06:30 Glucose (Glutose) 15 gm Q15M PRN PO DECREASED GLUCOSE; Start 09/25/17 at 06:30 Glucose (Glutose) 22.5 gm Q15M PRN PO DECREASED GLUCOSE; Start 09/25/17 at 06: 30 Dextrose (D50w Syringe) 25 ml Q15M PRN IV DECREASED GLUCOSE; Start 09/25/17 at 06:30 Dextrose (D50w Syringe) 50 ml Q15M PRN IV DECREASED GLUCOSE; Start 09/25/17 at 06:30 Glucagon (Glucagen) 1 mg Q15M PRN IM DECREASED GLUCOSE; Start 09/25/17 at 06: 30 Glucose 15 gm 15 gm Q15M PRN BUCCAL DECREASED GLUCOSE; Start 09/25/17 at 06:30 Piperacillin Sod/ Tazobactam Sod 100 ml @ 200 mls/hr Q8 IVPB Last administered on 09/26/17 12:12; Admin Dose 200 MLS/HR; Start 09/26/17 at 12: 00 Vancomycin HCl (Vancocin) 250 ml @ 125 mls/hr Q12H IVPB Last administered on 09/26/17 12:12; Admin Dose 125 MLS/HR; Start 09/26/17 at 13:00 ALAN DAHL MD Sep 26, 2017 17:20
[2017-09-27] VITALS (11 sets, daily range): BP systolic 117–133; BP diastolic 73–80; PULSE 85–95; RESP 19–20
[2017-09-27] MEDS: VANCOMYCIN 1 GM in NS 250 ML IVPB SCH ×2 (01:13→13:31)
[2017-09-27] MEDS: ACCU-CHEK XX SCH (01:14)
[2017-09-27] MEDS: PIPER-TAZO 3.375 GM IV (PMX) 100 ML IVPB SCH ×3 (05:34→21:53)
[2017-09-27] MEDS: morphine 2 MG INJ IV PRN ×3 (05:40→23:09)
[2017-09-27] MEDS: ACETAMINOPHEN 325 MG TAB PO PRN (05:40)
[2017-09-27] MEDS: INSULIN ASPART [NOVOLOG] 3 ML PEN SC SCH ×7 (07:55→21:00)
[2017-09-27 08:31] LABS: ABNORMAL IP MESSAGE 1; BASOPHILS % 0.5 % (0.0-2.0); EOSINOPHILS # 0.1 10^3/ul (0.0-0.5); EOSINOPHILS % 1.3 % (0.0-7.0); HEMATOCRIT 39.4 % (42.0-52.0); HEMOGLOBIN 14.4 g/dl (14.0-18.0); LYMPHOCYTES # 1.1 10^3/ul (0.8-2.9); LYMPHOCYTES % 12.9 % (15.0-51.0); MEAN CORPUSCULAR HEMOGLOBIN 34.9 pg (29.0-33.0); MEAN CORPUSCULAR HGB CONC 36.5 g/dl (32.0-37.0); MEAN CORPUSCULAR VOLUME 95.4 fl (82.0-101.0); MEAN PLATELET VOLUME 12.5 fl (7.4-10.4); MONOCYTE # 1.2 10^3/ul (0.3-0.9); MONOCYTES % 13.8 % (0.0-11.0); NEUTROPHILS % 70.9 % (39.0-77.0); PLATELET COUNT 56 10^3/UL (140-415); POSITIVE DIFF @See below; RED BLOOD COUNT 4.13 10^6/ul (4.70-6.10); RED CELL DISTRIBUTION WIDTH 13.4 % (11.5-14.5); WHITE BLOOD COUNT 8.5 10^3/ul (4.8-10.8)
[2017-09-27] MEDS: INSULIN GLARGINE [LANtus] 3 ML PEN SC SCH (08:48)
[2017-09-27 09:00] LABS: ALBUMIN 2.3 g/dl (3.3-4.9); BILIRUBIN,DIRECT 0.8 mg/dl (0.00-0.20); BILIRUBIN,TOTAL 2.8 mg/dl (0.2-1.3); TOTAL PROTEIN 6.1 g/dl (6.1-8.1)
[2017-09-27 09:15] LABS: CALCIUM 7.7 mg/dl (8.4-10.2); CREATININE 0.64 mg/dl (0.61-1.24); MAGNESIUM 1.6 mg/dl (1.7-2.5)
[2017-09-27] MEDS ORDERED: POTASSIUM CHLORIDE (SR) 20 MEQ TAB PO STA (10:39)
[2017-09-27] MEDS ORDERED: MAGNESIUM SULFATE 2 GM/50 ML 50 ML IVPB SCH (11:00)
--- NOTE | 2017-09-27 14:20 | PN ---
Date/Time of Note Date/Time of Note DATE: 09/27/17 TIME: 14:16 Assessment/Plan VTE Prophylaxis VTE Prophylaxis Intervention: ambulation Lines/Catheters IV Catheter Type (from [facility]): Peripheral IV Urinary Cath still in place: No Assessment/Plan Chief Complaint/Hosp Course 62-year-old male with a history of diabetes presented with shortness of breath, fever and cough 1 day. 1. Status post sepsis with gram-negative bacteremia, unknown etiology. Most likely suspected early pneumonia. -Continue Zosyn/vancomycin. Follow-up final cultures and repeat cultures. 2. Right pleural effusion per chest x-ray with possible superimposed pneumonia. -F/u CT chest to reevaluate. 3. Acute kidney injury, prerenal, secondary to hemodynamics. Resolved. -Continue to monitor. 4 . Type 2 diabetes. A1c 7.4. -Continue Accu-Cheks/ISS. 5. Thrombocytopenia, likely ITP. Patient also reported a history of liver cirrhosis. His abdominal ultrasound is currently stable. -Recommended outpatient hematology follow-up. Currently, patient does not require any plateletpheresis and he does not have any bleeding episodes. 6. Transaminase elevation with hyperbilirubinemia. Asymptomatic. Stable ultrasound. Negative Hep panel. Abdominal exam benign. -Recommend outpatient GI evaluation. 7. Hypokalemia with hypomagnesemia. -Replete and monitor. Plan: Follow-up with cultures and CT findings. Estimated discharge planning on oral antibiotics in 24 hours if patient remains stable and no further workup indicated per CT. Patient was seen in collaboration with . Problems: Subjective 24 Hr Interval Summary Free Text/Dictation Patient doing well. Patient has shortness of breath. Not in any acute distress. Exam/Review of Systems Vital Signs Vitals Vital Signs Date Time Temp Pulse Resp B/P Pulse Ox O2 Delivery O2 Flow Rate FiO2 09/27/17 12:27 86 09/27/17 11:43 98.2 19 124/78 92 09/25/17 07:19 Room Air 09/25/17 05:34 2.0 Intake and Output 09/26/17 09/26/17 09/27/17 15:00 23:00 07:00 Intake Total 900 ml 100 ml 750 ml Balance 900 ml 100 ml 750 ml Exam General: Well developed,adequately built, not in any acute distress . HEENT: Normocephalic, Atraumatic, No laceration or hematoma; Eyes: PEERL, Conjunctiva clear, Anicteric sclera Neck: Supple without any lymphadenopathy, nontender, no JVD, no carotid bruits, trachea midline, no thyromegaly Cardiac: S1, S2 auscultated, regular rhythm and rate, no mumurs or gallop Pulmonary: Diminished breath sounds right upper and lower lobes. Normal respiratory effort. Chest clear to auscultation bilaterally, no adventitious breath sounds GI: Abdomen normal to inspection. Soft, non tender, non- distended, no masses, no rebound tenderness or guarding. Bowel sounds active on all four quadrants Genitourinary: Deferred Extremities: No cyanosis, clubbing, or edema. Pulses [2+] bilaterally. Full ROM on all four extremities. No focal weakness appreciated. Neurologic: Alert to person, place, time, and situation. Affect appropriate, intact sensation. Skin: Clean,dry, and intact. No ecchymosis, no rashes, or lesions Results Result Diagram: 09/27/17 0711 09/27/17 0711 Results 24 hrs Laboratory Tests Test 09/26/17 18:17 09/26/17 21:33 09/27/17 07:11 09/27/17 08:27 Bedside Glucose 102 129 97 White Blood Count 8.5 Red Blood Count 4.13 L Hemoglobin 14.4 Hematocrit 39.4 L Mean Corpuscular Volume 95.4 Mean Corpuscular Hemoglobin 34.9 H Mean Corpuscular Hemoglobin Concent 36.5 Red Cell Distribution Width 13.4 Platelet Count 56 L Mean Platelet Volume 12.5 H Neutrophils % 70.9 Lymphocytes % 12.9 L Monocytes % 13.8 H Eosinophils % 1.3 Basophils % 0.5 Nucleated Red Blood Cells % 0.0 Neutrophils # 6.0 Lymphocytes # 1.1 Monocytes # 1.2 H Eosinophils # 0.1 Basophils # 0.0 Nucleated Red Blood Cells # 0.0 Sodium Level 138 Potassium Level 3.0 L Chloride Level 109 Carbon Dioxide Level 23 Anion Gap 9 Blood Urea Nitrogen 7 Creatinine 0.64 Glucose Level 97 Calcium Level 7.7 L Magnesium Level 1.6 L Total Bilirubin 2.8 H Direct Bilirubin 0.80 #H Indirect Bilirubin 2.0 H Aspartate Amino Transf (AST/SGOT) 47 H Alanine Aminotransferase (ALT/SGPT) 38 Alkaline Phosphatase 77 Total Protein 6.1 Albumin 2.3 L Test 09/27/17 11:55 Bedside Glucose 161 Medications Medications Current Medications Acetaminophen (Tylenol Tab) 650 mg Q6H PRN PO PAIN LEVEL 1-3 OR FEVER Last administered on 09/27/17 05:40; Admin Dose 650 MG; Start 09/25/17 at 06:30 Morphine Sulfate (morphine) 2 mg Q4H PRN IV SEVERE PAIN LEVEL 7-10 Last administered on 09/27/17 11:58; Admin Dose 2 MG; Start 09/25/17 at 06:30 Diagnostic Test (Pha) (Accu-Chek) 1 ea 02 XX ; Start 09/26/17 at 02:00 Insulin Glargine (Lantus) 12 unit DAILY@08 SC Last administered on 09/27/17 08:48; Admin Dose 12 UNIT; Start 09/25/17 at 08:00 Miscellaneous Information 1 ea NOTE XX ; Start 09/25/17 at 06:30 Glucose (Glutose) 15 gm Q15M PRN PO DECREASED GLUCOSE; Start 09/25/17 at 06:30 Glucose (Glutose) 22.5 gm Q15M PRN PO DECREASED GLUCOSE; Start 09/25/17 at 06: 30 Dextrose (D50w Syringe) 25 ml Q15M PRN IV DECREASED GLUCOSE; Start 09/25/17 at 06:30 Dextrose (D50w Syringe) 50 ml Q15M PRN IV DECREASED GLUCOSE; Start 09/25/17 at 06:30 Glucagon (Glucagen) 1 mg Q15M PRN IM DECREASED GLUCOSE; Start 09/25/17 at 06: 30 Glucose 15 gm 15 gm Q15M PRN BUCCAL DECREASED GLUCOSE; Start 09/25/17 at 06:30 Piperacillin Sod/ Tazobactam Sod 100 ml @ 200 mls/hr Q8 IVPB Last administered on 09/27/17 05:34; Admin Dose 200 MLS/HR; Start 09/26/17 at 12: 00 Vancomycin HCl (Vancocin) 250 ml @ 125 mls/hr Q12H IVPB Last administered on 09/27/17 13:31; Admin Dose 125 MLS/HR; Start 09/26/17 at 13:00 Miscellaneous Information (*Rx Drug Level Order Reminder*) 1 ONCE ONCE XX ; Start 09/28/17 at 00:00; Stop 09/28/17 at 00:01 LORELEI RIOS NP Sep 27, 2017 14:20
--- NOTE | 2017-09-27 15:50 | CONS ---
Date/Time of Note Date/Time of Note DATE: 09/27/17 TIME: 15:48 Assessment/Plan Assessment/Plan Chief Complaint/Hosp Course 62-year-old male with a history of diabetes came with shortness of breath, fever and cough 1 day. pt was febrile with Temp 103.5 and a tachycardic with a heart rate of 130. Labs shows a WBC of 17.6, PLT 68, bicarb 16, potassium 3, creatinine 1.57, glucose 262. Initial lactic acid was 6 which trended down to 3.1. Chest x-ray shows hypoinflated lungs with mild vascular crowding at lung bases. Renal has been consulted for MELISSA, Metabolic acidosis. . Problems: Additional Assessment/Plan 1. Acute kidney injury Non oliguric Due to ATN from sepsis 2. Sepsis due to bactermia with blood cx growing gram negative rods 3. Metabolic acidosis 4. hypokalemia 5. Diabetes melitus with Hyperglycemia 6. Thrombocytopenia Plan : abx switched to IV zosyn, Cr normal , Blood cx growing gram negative rods - E.coli IV abx as per PMD NO need for renal US at this time, we will monitor it WORK UP FOR thrombocytopenia as per PMD will continue to follow up, HIV negative hepatitis panel negative Consultation Date/Type/Reason Admit Date/Time Sep 25, 2017 at 03:29 Initial Consult Date 09/25/17 Type of Consultation: NEPHROLOGY Referring Provider: SUSAN DE DIOS MD Exam/Review of Systems Vital Signs Vitals Vital Signs Date Time Temp Pulse Resp B/P Pulse Ox O2 Delivery O2 Flow Rate FiO2 09/27/17 15:15 98.1 97 19 125/76 96 09/25/17 07:19 Room Air 09/25/17 05:34 2.0 Intake and Output 09/26/17 09/26/17 09/27/17 15:00 23:00 07:00 Intake Total 900 ml 100 ml 750 ml Balance 900 ml 100 ml 750 ml Exam Constitutional: alert Respiratory: clear to auscultation, diminished breath sounds, normal air movement Cardiovascular: other (tachycardia ), regular rate and rhythm Gastrointestinal: non-tender, soft Musculoskeletal: nl extremities to inspection, nl gait and stance Extremities: normal pulses Neurological: OUTSIDE SALES MANAGER II-XII intact, nl mental status, nl speech, nl strength Results Result Diagram: 09/27/1711 10/27/17 0711 Results 24 hrs Laboratory Tests Test 09/26/17 18:17 09/26/17 21:33 09/27/17 07:11 09/27/17 08:27 Bedside Glucose 102 129 97 White Blood Count 8.5 Red Blood Count 4.13 L Hemoglobin 14.4 Hematocrit 39.4 L Mean Corpuscular Volume 95.4 Mean Corpuscular Hemoglobin 34.9 H Mean Corpuscular Hemoglobin Concent 36.5 Red Cell Distribution Width 13.4 Platelet Count 56 L Mean Platelet Volume 12.5 H Neutrophils % 70.9 Lymphocytes % 12.9 L Monocytes % 13.8 H Eosinophils % 1.3 Basophils % 0.5 Nucleated Red Blood Cells % 0.0 Neutrophils # 6.0 Lymphocytes # 1.1 Monocytes # 1.2 H Eosinophils # 0.1 Basophils # 0.0 Nucleated Red Blood Cells # 0.0 Sodium Level 138 Potassium Level 3.0 L Chloride Level 109 Carbon Dioxide Level 23 Anion Gap 9 Blood Urea Nitrogen 7 Creatinine 0.64 Glucose Level 97 Calcium Level 7.7 L Magnesium Level 1.6 L Total Bilirubin 2.8 H Direct Bilirubin 0.80 #H Indirect Bilirubin 2.0 H Aspartate Amino Transf (AST/SGOT) 47 H Alanine Aminotransferase (ALT/SGPT) 38 Alkaline Phosphatase 77 Total Protein 6.1 Albumin 2.3 L Test 09/27/17 11:55 Bedside Glucose 161 Medications Medications Current Medications Acetaminophen (Tylenol Tab) 650 mg Q6H PRN PO PAIN LEVEL 1-3 OR FEVER Last administered on 09/27/17 05:40; Admin Dose 650 MG; Start 09/25/17 at 06:30 Morphine Sulfate (morphine) 2 mg Q4H PRN IV SEVERE PAIN LEVEL 7-10 Last administered on 09/27/17 11:58; Admin Dose 2 MG; Start 09/25/17 at 06:30 Diagnostic Test (Pha) (Accu-Chek) 1 ea 02 XX ; Start 09/26/17 at 02:00 Insulin Glargine (Lantus) 12 unit DAILY@08 SC Last administered on 09/27/17 08:48; Admin Dose 12 UNIT; Start 09/25/17 at 08:00 Miscellaneous Information 1 ea NOTE XX ; Start 09/25/17 at 06:30 Glucose (Glutose) 15 gm Q15M PRN PO DECREASED GLUCOSE; Start 09/25/17 at 06:30 Glucose (Glutose) 22.5 gm Q15M PRN PO DECREASED GLUCOSE; Start 09/25/17 at 06: 30 Dextrose (D50w Syringe) 25 ml Q15M PRN IV DECREASED GLUCOSE; Start 09/25/17 at 06:30 Dextrose (D50w Syringe) 50 ml Q15M PRN IV DECREASED GLUCOSE; Start 09/25/17 at 06:30 Glucagon (Glucagen) 1 mg Q15M PRN IM DECREASED GLUCOSE; Start 09/25/17 at 06: 30 Glucose 15 gm 15 gm Q15M PRN BUCCAL DECREASED GLUCOSE; Start 09/25/17 at 06:30 Piperacillin Sod/ Tazobactam Sod 100 ml @ 200 mls/hr Q8 IVPB Last administered on 09/27/17 05:34; Admin Dose 200 MLS/HR; Start 09/26/17 at 12: 00 Vancomycin HCl (Vancocin) 250 ml @ 125 mls/hr Q12H IVPB Last administered on 09/27/17 13:31; Admin Dose 125 MLS/HR; Start 09/26/17 at 13:00 Miscellaneous Information (*Rx Drug Level Order Reminder*) 1 ONCE ONCE XX ; Start 09/28/17 at 00:00; Stop 09/28/17 at 00:01 ALAN DAHL MD Sep 27, 2017 15:50
[2017-09-27] MEDS: GUAIFENESIN 20 MG/ML 5ML CUP PO PRN ×2 (17:58→21:58)
[2017-09-28] VITALS (13 sets, daily range): BP systolic 106–144; BP diastolic 60–88; PULSE 80–97; RESP 18–22
[2017-09-28] MEDS: ACCU-CHEK XX SCH (02:00)
[2017-09-28] MEDS: GUAIFENESIN 20 MG/ML 5ML CUP PO PRN ×3 (02:36→18:30)
[2017-09-28] MEDS: VANCOMYCIN 1 GM in NS 250 ML IVPB SCH ×2 (02:36→10:55)
[2017-09-28] MEDS: PIPER-TAZO 3.375 GM IV (PMX) 100 ML IVPB SCH ×3 (06:30→22:53)
[2017-09-28 06:58] LABS: CALCIUM 7.7 mg/dl (8.4-10.2); CREATININE 0.64 mg/dl (0.61-1.24); MAGNESIUM 1.4 mg/dl (1.7-2.5); POTASSIUM 3.2 mmol/L (3.5-5.1)
[2017-09-28] MEDS: INSULIN ASPART [NOVOLOG] 3 ML PEN SC SCH ×7 (09:34→20:57)
[2017-09-28] MEDS: INSULIN GLARGINE [LANtus] 3 ML PEN SC SCH (09:36)
--- NOTE | 2017-09-28 10:10 | RADRPT ---
PROCEDURE: CT Chest without contrast. CLINICAL INDICATION: Chest pain. Pleural effusion. Abnormal chest x-ray. Liver disease. TECHNIQUE: CT scan of the chest without contrast was performed on a multidetector high-resolution CT scanner. Coronal and sagittal reformatted images were obtained from the axial source images. CTD I 11.02 mGy and DLP 173.41 mGy-cm. One or more of the following dose reduction techniques were used: - Automated exposure control. - Adjustment of the mA and/or kV according to patient size. - Use of iterative reconstruction technique. COMPARISON: Chest x-ray 09/25/2017 FINDINGS: Lungs: Focal rounded 2.8 cm ground-glass hazy infiltrative density in the lateral right lung apex. F ocal pneumonia is a definite consideration. However, subtle underlying neoplastic process such as ad enocarcinoma in-situ is within the differential. Short-term follow-up is advised. Tiny subtle hazy f ocus of low grade inflammatory bronchiolitis in the posterior right upper lung. Again, simple follow -up is advised. Dense subsegmental atelectasis in the posterior lung bases bilaterally. Airways: Normal. Pleura: Minimal sliver of fluid layering within the lung bases. Mediastinum: Normal. Cardiovascular: Abundant aortic and coronary artery atherosclerotic vascular calcifications. Lymph nodes: No adenopathy. Musculoskeletal: Mild degenerative enthesopathy of the spine. Upper abdomen: Lobulated nodular cirrhotic liver, with portal hypertension and upper abdominal varic es, and a large recanalized paraumbilical vein. IMPRESSION: 1. Subtle rounded ground-glass infiltrative density in the lateral right lung apex. Focal pneumonia is most likely. Follow-up to resolution is advised to exclude an underlying neoplastic process. 2. Tiny focus of presumed inflammatory bronchiolitis in the posterior right upper lung, also likely benign and simple follow-up is advised. 3. Tiny effusions in the lung bases with associated dense compressive atelectasis. 4. Abundant coronary artery atherosclerotic vascular calcifications. 5. Cirrhosis with portal hypertension and upper abdominal varices. RPTAT: HMJB .Josiah Anderson MD, Date Time Electronically viewed and signed by .Josiah Anderson MD, on 09/28/2017 10:10 .B/
--- NOTE | 2017-09-28 11:17 | PN ---
Date/Time of Note Date/Time of Note DATE: 09/28/17 TIME: 11:10 Assessment/Plan VTE Prophylaxis VTE Prophylaxis Intervention: heparin Lines/Catheters IV C[facility]from [facility] Peripheral IV Urinary Cath still in place: No Assessment/Plan Problems: (1) Sepsis Status: Acute Comment: Patient is resolving this. He still on IV antibiotics we need to transition him over. Please note this is polymicrobial gram-negative sepsis. He did not have shock. This will be somewhat tricky to call with an appropriate outpatient regimen but not impossible. The question is raised as to where to this come from. Had an abnormality in the chest x-ray but no urine studies were done at all. Doing urine culture now will be useless. If this is a prostatitis even plain UA may actually give us some degree of information. Qualifiers: Sepsis type: sepsis due to unspecified organism Qualified Code: A41.9 - Sepsis, due to unspecified organism (2) Cirrhosis Status: Chronic Comment: This patient clearly has cirrhosis despite the discrepancy between the ultrasound report of the CT scan report. He will need evaluation for this although is very likely on the basis of nonalcoholic fatty liver disease. This means that he will need appropriate vaccines through his primary care physician Dr. Derrick Echols Qualifiers: Hepatic cirrhosis type: other cirrhosis Qualified Code: K74.69 - Other cirrhosis of liver (3) Thrombocytopenia Comment: This is due to cirrhosis (4) Hypokalemia Status: Acute Comment: I will replete this before he can be discharged (5) Bacteremia due to Pseudomonas Status: Acute Comment: He is on appropriate antibiotic therapy at this time. Conversion orals tomorrow (6) E coli bacteremia Status: Acute Comment: Is on appropriate antibiotic therapy now. Conversion orals tomorrow (7) Diabetes mellitus type 2 in nonobese Status: Chronic Comment: Noted and stable. Subjective 24 Hr Interval Summary Free Text/Dictation Patient was under the impression he could go home today. Constitutional: no complaints ENT: no complaints Respiratory: no complaints Cardiovascular: no complaints Gastrointestinal: no complaints Genitourinary: no complaints Exam/Review of Systems Vital Signs Vitals Vital Signs Date Time Temp Pulse Resp B/P Pulse Ox O2 Delivery O2 Flow Rate FiO2 09/28/17 08:38 85 09/28/17 07:57 98.0 21 144/88 92 09/25/17 07:19 Room Air 09/25/17 05:34 2.0 Intake and Output 09/27/17 09/27/17 09/28/17 15:00 23:00 07:00 Intake Total 50 ml 1150 ml 250 ml Balance 50 ml 1150 ml 250 ml Exam Constitutional: alert, oriented Respiratory: clear to auscultation, normal air movement Cardiovascular: nl pulses, regular rate and rhythm Gastrointestinal: nl liver, spleen, non-tender, soft Results Result Diagram: 09/27/17 0711 09/28/17 0547 Results 24 hrs Laboratory Tests Test 09/27/17 11:55 09/27/17 17:56 09/27/17 21:56 09/28/17 00:33 Bedside Glucose 161 155 129 Vancomycin Level Trough < 5.0 L Test 09/28/17 05:47 09/28/17 09:26 Sodium Level 139 Potassium Level 3.2 L Chloride Level 107 Carbon Dioxide Level 23 Anion Gap 12 Blood Urea Nitrogen 6 L Creatinine 0.64 Glucose Level 122 Calcium Level 7.7 L Magnesium Level 1.4 L Bedside Glucose 166 Medications Medications Current Medications Acetaminophen (Tylenol Tab) 650 mg Q6H PRN PO PAIN LEVEL 1-3 OR FEVER Last administered on 09/27/17 05:40; Admin Dose 650 MG; Start 09/25/17 at 06:30 Morphine Sulfate (morphine) 2 mg Q4H PRN IV SEVERE PAIN LEVEL 7-10 Last administered on 09/27/17 23:09; Admin Dose 2 MG; Start 09/25/17 at 06:30 Diagnostic Test (Pha) (Accu-Chek) 1 ea 02 XX ; Start 09/26/17 at 02:00 Insulin Glargine (Lantus) 12 unit DAILY@08 SC Last administered on 09/28/17 09:36; Admin Dose 12 UNIT; Start 09/25/17 at 08:00 Miscellaneous Information 1 ea NOTE XX ; Start 09/25/17 at 06:30 Glucose (Glutose) 15 gm Q15M PRN PO DECREASED GLUCOSE; Start 09/25/17 at 06:30 Glucose (Glutose) 22.5 gm Q15M PRN PO DECREASED GLUCOSE; Start 09/25/17 at 06: 30 Dextrose (D50w Syringe) 25 ml Q15M PRN IV DECREASED GLUCOSE; Start 09/25/17 at 06:30 Dextrose (D50w Syringe) 50 ml Q15M PRN IV DECREASED GLUCOSE; Start 09/25/17 at 06:30 Glucagon (Glucagen) 1 mg Q15M PRN IM DECREASED GLUCOSE; Start 09/25/17 at 06: 30 Glucose 15 gm 15 gm Q15M PRN BUCCAL DECREASED GLUCOSE; Start 09/25/17 at 06:30 Piperacillin Sod/ Tazobactam Sod (Zosyn 3.375gm/ 100 ml (Pmx)) 100 ml @ 200 mls /hr Q8 IVPB Last administered on 09/28/17 06:30; Admin Dose 200 MLS/HR; Start 09/26/17 at 12:00 Guaifenesin 200 mg 200 mg Q4H PRN PO COUGH Last administered on 09/28/17 06: 37; Admin Dose 200 MG; Start 09/27/17 at 17:30 Vancomycin HCl (Vancocin) 250 ml @ 125 mls/hr Q8H IVPB Last administered on 10:55; Admin Dose 125 MLS/HR; Start 09/28/17 at 02:00 Miscellaneous Information (*Rx Drug Level Order Reminder*) VANCOMYCIN TROUGH AT 0900 ONCE ONCE XX ; Start 09/29/17 at 09:00; Stop 09/29/17 at 09:01 Potassium Chloride (Klor-Con 20) 40 meq BID PO ; Start 09/28/17 at 11:00; Stop 09/29/17 at 10:59; Status OMEGA NELSON MD Sep 28, 2017 11:17
[2017-09-28] MEDS: POTASSIUM CHLORIDE (SR) 20 MEQ TAB PO SCH ×2 (14:28→20:54)
[2017-09-28 18:15] LABS: ADD UMIC NO; UR ASCORBIC ACID NEGATIVE (NEGATIVE); UR BILIRUBIN (Dip) NEGATIVE (NEGATIVE); UR BLOOD (Dip) NEGATIVE (NEGATIVE); UR CLARITY CLEAR (CLEAR); UR COLOR AMBER (YELLOW); UR GLUCOSE (Dip) 1+ mg/dL (NEGATIVE); UR KETONES (Dip) NEGATIVE (NEGATIVE); UR LEUKOCYTE ESTERASE (Dip) NEGATIVE Leu/ul (NEGATIVE); UR NITRITE (Dip) NEGATIVE (NEGATIVE); UR SPECIFIC GRAVITY (Dip) 1.012 (1.003-1.030); UR TOTAL PROTEIN (Dip) NEGATIVE (NEGATIVE); UR UROBILINOGEN (Dip) 2+ mg/dL (NEGATIVE)
--- NOTE | 2017-09-28 18:20 | CONS ---
Date/Time of Note Date/Time of Note DATE: 09/28/17 TIME: 18:15 Assessment/Plan Assessment/Plan Additional Assessment/Plan This is a 62-year-old male with a history of diabetes came with shortness of breath, fever and cough 1 day. pt was febrile with Temp 103.5 and a tachycardic with a heart rate of 130. Labs shows a WBC of 17.6, PLT 68, bicarb 16, potassium 3, creatinine 1.57, glucose 262. Initial lactic acid was 6 which trended down to 3.1. Chest x-ray shows hypoinflated lungs with mild vascular crowding at lung bases. Renal has been consulted for MELISSA, Metabolic acidosis. 1. Acute kidney injury Non oliguric Due to ATN from sepsis 2. Sepsis due to bacteremia with blood cx growing gram negative rods 3. Metabolic acidosis 4. hypokalemia- K replaced 5. Diabetes mellitus with Hyperglycemia 6. Thrombocytopenia 7. Hypomagnesium- replace mag, am mag level Plan : abx switched to IV zosyn, Cr normal , Blood cx growing gram negative rods - E.coli IV abx as per PMD NO need for renal US at this time, we will monitor it WORK UP FOR thrombocytopenia as per PMD will continue to follow up, HIV negative hepatitis panel negative - Dw Dr Channing Wray/staff Consultation Date/Type/Reason Admit Date/Time Sep 25, 2017 at 03:29 Initial Consult Date 09/25/17 Type of Consultation: NEPHROLOGY Referring Provider: SUSAN DE DIOS MD 24 HR Interval Summary Constitutional: requiring IVF Exam/Review of Systems Vital Signs Vitals Vital Signs Date Time Temp Pulse Resp B/P Pulse Ox O2 Delivery O2 Flow Rate FiO2 09/28/17 16:23 84 09/28/17 15:38 98.4 21 120/82 98 09/25/17 07:19 Room Air 09/25/17 05:34 2.0 Intake and Output 09/27/17 09/27/17 09/28/17 15:00 23:00 07:00 Intake Total 50 ml 1150 ml 250 ml Balance 50 ml 1150 ml 250 ml Exam Constitutional: alert, well developed Respiratory: diminished breath sounds Cardiovascular: nl pulses, other (s1s2) Gastrointestinal: soft Musculoskeletal: nl extremities to inspection Results Result Diagram: 09/27/17 0711 09/28/17 0547 Results 24 hrs Laboratory Tests Test 09/27/17 21:56 09/28/17 00:33 09/28/17 05:47 09/28/17 09:26 Bedside Glucose 129 166 Vancomycin Level Trough < 5.0 L Sodium Level 139 Potassium Level 3.2 L Chloride Level 107 Carbon Dioxide Level 23 Anion Gap 12 Blood Urea Nitrogen 6 L Creatinine 0.64 Glucose Level 122 Calcium Level 7.7 L Magnesium Level 1.4 L Test 09/28/17 12:27 Bedside Glucose 134 Medications Medications Current Medications Acetaminophen (Tylenol Tab) 650 mg Q6H PRN PO PAIN LEVEL 1-3 OR FEVER Last administered on 09/27/17 05:40; Admin Dose 650 MG; Start 09/25/17 at 06:30 Morphine Sulfate (morphine) 2 mg Q4H PRN IV SEVERE PAIN LEVEL 7-10 Last administered on 09/27/17 23:09; Admin Dose 2 MG; Start 09/25/17 at 06:30 Diagnostic Test (Pha) (Accu-Chek) 1 ea 02 XX ; Start 09/26/17 at 02:00 Insulin Glargine (Lantus) 12 unit DAILY@08 SC Last administered on 09/28/17 09:36; Admin Dose 12 UNIT; Start 09/25/17 at 08:00 Miscellaneous Information 1 ea NOTE XX ; Start 09/25/17 at 06:30 Glucose (Glutose) 15 gm Q15M PRN PO DECREASED GLUCOSE; Start 09/25/17 at 06:30 Glucose (Glutose) 22.5 gm Q15M PRN PO DECREASED GLUCOSE; Start 09/25/17 at 06: 30 Dextrose (D50w Syringe) 25 ml Q15M PRN IV DECREASED GLUCOSE; Start 09/25/17 at 06:30 Dextrose (D50w Syringe) 50 ml Q15M PRN IV DECREASED GLUCOSE; Start 09/25/17 at 06:30 Glucagon (Glucagen) 1 mg Q15M PRN IM DECREASED GLUCOSE; Start 09/25/17 at 06: 30 Glucose 15 gm 15 gm Q15M PRN BUCCAL DECREASED GLUCOSE; Start 09/25/17 at 06:30 Piperacillin Sod/ Tazobactam Sod (Zosyn 3.375gm/ 100 ml (Pmx)) 100 ml @ 200 mls /hr Q8 IVPB Last administered on 10/28/17at 14:30; Admin Dose 200 MLS/HR; Start 09/26/17 at 12:00; Stop 09/29/17 at 11:00 Guaifenesin (Robitussin Liquid Cup) 200 mg Q4H PRN PO COUGH Last administered on 09/28/17 06:37; Admin Dose 200 MG; Start 09/27/17 at 17:30 Potassium Chloride (Klor-Con 20) 40 meq BID PO Last administered on 09/28/17 14:28; Admin Dose 40 MEQ; Start 09/28/17 at 11:00; Stop 09/29/17 at 10:59 Levofloxacin (Levaquin) 750 mg DAILY@06 NGT ; Start 09/28/17 at 14:00; Stop at 13:59 Trimethoprim/ Sulfamethoxazole (Bactrim (Ds)) 1 tab BID PO ; Start 09/28/17 at 13:00; Stop 10/05/17 at 12:59 MOISES MCNEILL Sep 28, 2017 18:20
[2017-09-28] MEDS: TRIMETHOPRIM/SULFAMETHOX (DS) TAB PO SCH ×2 (18:29→20:54)
[2017-09-28] MEDS: LEVOFLOXACIN 750 MG TABLET NGT SCH (18:30)
[2017-09-28] MEDS ORDERED: MAGNESIUM SULFATE 1 GM/D5W 100 ML IVPB ONE (20:00)
[2017-09-29] VITALS (10 sets, daily range): BP systolic 120–133; BP diastolic 75–83; PULSE 82–90; RESP 18–22
[2017-09-29] MEDS: ACCU-CHEK XX SCH (01:19)
[2017-09-29] MEDS: morphine 2 MG INJ IV PRN (01:49)
[2017-09-29] MEDS: GUAIFENESIN 20 MG/ML 5ML CUP PO PRN (01:49)
[2017-09-29] MEDS: LEVOFLOXACIN 750 MG TABLET NGT SCH (06:12)
[2017-09-29] MEDS: PIPER-TAZO 3.375 GM IV (PMX) 100 ML IVPB SCH (06:13)
[2017-09-29 06:45] LABS: ABNORMAL IP MESSAGE 1; BASOPHIL # 0.1 10^3/ul (0.0-0.1); BASOPHILS % 0.5 % (0.0-2.0); EOSINOPHILS # 0.3 10^3/ul (0.0-0.5); EOSINOPHILS % 2.9 % (0.0-7.0); HEMOGLOBIN 15.6 g/dl (14.0-18.0); LYMPHOCYTES # 2.6 10^3/ul (0.8-2.9); LYMPHOCYTES % 27.2 % (15.0-51.0); MEAN CORPUSCULAR HEMOGLOBIN 35.5 pg (29.0-33.0); MEAN CORPUSCULAR HGB CONC 36.3 g/dl (32.0-37.0); MEAN CORPUSCULAR VOLUME 97.7 fl (82.0-101.0); MEAN PLATELET VOLUME 11.9 fl (7.4-10.4); MONOCYTE # 1.4 10^3/ul (0.3-0.9); NEUTROPHIL # 4.8 10^3/ul (1.6-7.5); NEUTROPHILS % 50.5 % (39.0-77.0); PLATELET COUNT 98 10^3/UL (140-415); POSITIVE DIFF @See below; RED CELL DISTRIBUTION WIDTH 13.5 % (11.5-14.5); WHITE BLOOD COUNT 9.6 10^3/ul (4.8-10.8)
[2017-09-29 07:09] LABS: ALBUMIN 3.3 g/dl (3.3-4.9); ALBUMIN/GLOBULIN RATIO 0.8; BILIRUBIN,INDIRECT 1.8 mg/dl (0-1.1); BILIRUBIN,TOTAL 1.8 mg/dl (0.2-1.3); CALCIUM 8.2 mg/dl (8.4-10.2); CREATININE 0.78 mg/dl (0.61-1.24); POTASSIUM 3.6 mmol/L (3.5-5.1); TOTAL PROTEIN 7.4 g/dl (6.1-8.1)
[2017-09-29] MEDS: INSULIN ASPART [NOVOLOG] 3 ML PEN SC SCH ×4 (07:55→11:57)
[2017-09-29] MEDS: INSULIN GLARGINE [LANtus] 3 ML PEN SC SCH (09:08)
[2017-09-29] MEDS: POTASSIUM CHLORIDE (SR) 20 MEQ TAB PO SCH (09:17)
[2017-09-29] MEDS: TRIMETHOPRIM/SULFAMETHOX (DS) TAB PO SCH (09:17)
--- NOTE | 2017-09-29 12:48 | PDOCDIS ---
Discharge Instructions DIAGNOSIS Discharge Diagnosis Gram-negative polymicrobial Pseudomonas and E. coli sepsis; abnormality in the right chest x-ray; cirrhosis; thrombocytopenia; diabetes mellitus type 2; acute kidney injury CONDITION Patient Condition: Fair HOME CARE INSTRUCTIONS: Special Diet: Carb controlled ACTIVITY: Activity Restrictions: Slowly Increase Activity Do not operate Power Tool FOLLOW UP/APPOINTMENTS Follow-up Plan Primary care physician Dr. Derrick Reed in 2 weeks OMEGA MURRAY MD Sep 29, 2017 12:48
--- NOTE | 2017-09-29 12:48 | DS ---
Date/Time of Note Date/Time of Note DATE: 09/29/17 TIME: 12:44 Discharge Summary Admission/Discharge Info Admit Date/Time Sep 25, 2017 at 03:29 Discharge Date/Time September 29, 2017 Discharge Diagnosis Gram-negative polymicrobial Pseudomonas and E. coli sepsis; abnormality in the right chest x-ray; cirrhosis; thrombocytopenia; diabetes mellitus type 2; acute kidney injury Patient Condition: Fair Consults Nephrology Procedures Abdominal ultrasound; CT scan chest Hx of Present Illness This is a 62-year-old male with a history of diabetes who presented to the emergency department complaining of shortness of breath, fever and cough 1 day. Cough is productive of yellowish/brownish sputum. Denied chest pain, nausea or vomiting. When he presented to the ER, he was febrile with a temperature of 103.5 and a tachycardic with a heart rate of 130. BP was within acceptable range. Labs shows a WBC of 17.6, PLT 68, bicarb 16, potassium 3, creatinine 1.57, glucose 262. Initial lactic acid was 6 which trended down to 3.1. Chest x-ray shows hypoinflated lungs with mild vascular crowding at lung bases. Urinalysis is pending. . Hospital Course 62-year-old male with a history of diabetes presented with shortness of breath, fever and cough 1 day. 1. Status post sepsis with gram-negative bacteremia, unknown etiology. Most likely suspected early pneumonia. -Continue Zosyn/vancomycin. Follow-up final cultures and repeat cultures. 2. Right pleural effusion per chest x-ray with possible superimposed pneumonia. -F/u CT chest to reevaluate. 3. Acute kidney injury, prerenal, secondary to hemodynamics. Resolved. -Continue to monitor. 4 . Type 2 diabetes. A1c 7.4. -Continue Accu-Cheks/ISS. 5. Thrombocytopenia, likely ITP. Patient also reported a history of liver cirrhosis. His abdominal ultrasound is currently stable. -Recommended outpatient hematology follow-up. Currently, patient does not require any plateletpheresis and he does not have any bleeding episodes. 6. Transaminase elevation with hyperbilirubinemia. Asymptomatic. Stable ultrasound. Negative Hep panel. Abdominal exam benign. -Recommend outpatient GI evaluation. 7. Hypokalemia with hypomagnesemia. -Replete and monitor. Plan: Follow-up with cultures and CT findings. Estimated discharge planning on oral antibiotics in 24 hours if patient remains stable and no further workup indicated per CT. Patient was seen in collaboration with . Toney 62-year-old gentleman admitted with sepsis. Blood cultures initially were positive for 2 different gram-negative organisms. Repeat blood cultures were negative. He is symptomatically as well as clinically improved. As such he is now stable for discharge on oral antibiotic therapy. He has no known communicable diseases he is not hazard to himself or others his rehabilitation potential is fair. What needs to be followed up as an outpatient is the abnormal chest x-ray as well as his cirrhosis. He had negative hepatitis serologies and the etiology of his cirrhosis is suspected to be nonalcoholic fatty liver disease. Home Meds Reported Medications Ibuprofen* (Ibuprofen*) 600 Mg Tablet, 600 MG PO Q6, TAB 09/25/17 Glipizide* (Glipizide*) 5 Mg Tablet, 5 MG PO DAILY, TAB 09/25/17 Metformin Hcl* (Metformin Hcl*) 500 Mg Tablet, 500 MG PO WITH BREAKFAST DINNE, # 30 TAB 09/25/17 Follow-up Plan Primary care physician Dr. Derrick Reed in 2 weeks Primary Care Provider Derrick Reed Pending Labs Laboratory Tests Test 09/28/17 15:30 09/28/17 18:17 09/28/17 20:56 09/29/17 05:26 Urine Color GENTRY (YELLOW) Urine Clarity CLEAR (CLEAR) Urine pH 7.0 (5.0-9.0) Urine Specific [place] 1.012 (1.003-1.030) Urine Ketones NEGATIVEmg/dL (NEGATIVE) Urine Nitrite NEGATIVEmg/dL (NEGATIVE) Urine Bilirubin NEGATIVEmg/dL (NEGATIVE) Urine Urobilinogen 2+mg/dL (NEGATIVE) Urine Leukocyte Esterase NEGATIVELeu/ul (NEGATIVE) Urine Hemoglobin NEGATIVEmg/dL (NEGATIVE) Urine Glucose 1+mg/dL (NEGATIVE) Urine Total Protein NEGATIVEmg/dl (NEGATIVE) Bedside Glucose 191mg/dL (70-220) 110mg/dL (70-220) White Blood Count 9.610^3/ul (4.8-10.8) Red Blood Count 4.4010^6/ul (4.70-6.10) Hemoglobin 15.6g/dl (14.0-18.0) Hematocrit 43.0% (42.0-52.0) Mean Corpuscular Volume 97.7fl (82.0-101.0) Mean Corpuscular Hemoglobin 35.5pg (29.0-33.0) Mean Corpuscular Hemoglobin Concent 36.3g/dl (32.0-37.0) Red Cell Distribution Width 13.5% (11.5-14.5) Platelet Count 9810^3/UL (140-415) Mean Platelet Volume 11.9fl (7.4-10.4) Neutrophils % 50.5% (39.0-77.0) Lymphocytes % 27.2% (15.0-51.0) Monocytes % 15.0% (0.0-11.0) Eosinophils % 2.9% (0.0-7.0) Basophils % 0.5% (0.0-2.0) Nucleated Red Blood Cells % 0.0/100WBC (0.0-0.0) Neutrophils # 4.810^3/ul (1.6-7.5) Lymphocytes # 2.610^3/ul (0.8-2.9) Monocytes # 1.410^3/ul (0.3-0.9) Eosinophils # 0.310^3/ul (0.0-0.5) Basophils # 0.110^3/ul (0.0-0.1) Nucleated Red Blood Cells # 0.010^3/ul (0.0-0.0) Sodium Level 142mmol/L (135-144) Potassium Level 3.6mmol/L (3.5-5.1) Chloride Level 110mmol/L (97-110) Carbon Dioxide Level 21mmol/L (21-31) Anion Gap 15 (8-16) Blood Urea Nitrogen 7mg/dl (7-20) Creatinine 0.78mg/dl (0.61-1.24) Glucose Level 104mg/dl (70-220) Calcium Level 8.2mg/dl (8.4-10.2) Magnesium Level 1.7mg/dl (1.7-2.5) Total Bilirubin 1.8mg/dl (0.2-1.3) Direct Bilirubin 0.00mg/dl (0.00-0.20) Indirect Bilirubin 1.8mg/dl (0-1.1) Aspartate Amino Transf (AST/SGOT) 51IU/L (15-46) Alanine Aminotransferase (ALT/SGPT) 41IU/L (13-69) Alkaline Phosphatase 136IU/L (42-121) Total Protein 7.4g/dl (6.1-8.1) Albumin 3.3g/dl (3.3-4.9) Globulin 4.10g/dl (1.3-3.2) Albumin/Globulin Ratio 0.80 Test 09/29/17 09:01 09/29/17 11:51 Bedside Glucose 163mg/dL (70-220) 98mg/dL (70-220) OMEGA MURRAY MD Sep 29, 2017 12:48
[2017-09-29] MEDS ORDERED: SULF-182 PO (12:49)
[2017-09-29] MEDS ORDERED: LEVO750T25 NGT (12:49)
--- NOTE | 2017-09-29 12:59 | CONS ---
Date/Time of Note Date/Time of Note DATE: 09/29/17 TIME: 12:55 Assessment/Plan Assessment/Plan Additional Assessment/Plan 1. Acute kidney injury Non oliguric Due to ATN from sepsis 2. Sepsis due to bacteremia with blood cx growing gram negative rods 3. Metabolic acidosis 4. hypokalemia- K replaced 5. Diabetes mellitus with Hyperglycemia 6. Thrombocytopenia 7. Hypomagnesium- replace mag, am mag level- 1.7 today Plan : abx switched to IV zosyn, Cr normal , Blood cx growing gram negative rods - E.coli IV abx as per PMD NO need for renal US at this time, we will monitor it WORK UP FOR thrombocytopenia as per PMD will continue to follow up, HIV negative hepatitis panel negative - Dw Dr Channing Wray/staff Consultation Date/Type/Reason Admit Date/Time Sep 25, 2017 at 03:29 Initial Consult Date 09/25/17 Type of Consultation: NEPHROLOGY Referring Provider: SUSAN DE DIOS MD Detailed Summary Respiratory: no complaints Cardiovascular: no complaints Gastrointestinal: no complaints Genitourinary: no complaints Musculoskeletal: no complaints Exam/Review of Systems Vital Signs Vitals Vital Signs Date Time Temp Pulse Resp B/P Pulse Ox O2 Delivery O2 Flow Rate FiO2 09/29/17 12:26 82 09/29/17 11:23 98.4 19 133/83 93 09/25/17 07:19 Room Air Intake and Output 09/28/17 09/28/17 09/29/17 15:00 23:00 07:00 Intake Total 100 ml 800 ml 800 ml Balance 100 ml 800 ml 800 ml Exam Constitutional: alert, well developed Respiratory: clear to auscultation, diminished breath sounds Cardiovascular: nl pulses, other (SR HR 80) Musculoskeletal: nl extremities to inspection Neurological: nl mental status, nl speech Results Result Diagram: 09/29/1752509/29/17 05 Results 24 hrs Laboratory Tests Test 09/28/17 15:30 09/28/17 18:17 09/28/17 20:56 09/29/17 05:26 Urine Color GENTRY Urine Clarity CLEAR Urine pH 7.0 Urine Specific [place] 1.012 Urine Ketones NEGATIVE Urine Nitrite NEGATIVE Urine Bilirubin NEGATIVE Urine Urobilinogen 2+ H Urine Leukocyte Esterase NEGATIVE Urine Hemoglobin NEGATIVE Urine Glucose 1+ H Urine Total Protein NEGATIVE Bedside Glucose 191 110 White Blood Count 9.6 Red Blood Count 4.40 L Hemoglobin 15.6 Hematocrit 43.0 Mean Corpuscular Volume 97.7 Mean Corpuscular Hemoglobin 35.5 H Mean Corpuscular Hemoglobin Concent 36.3 Red Cell Distribution Width 13.5 Platelet Count 98 #L Mean Platelet Volume 11.9 H Neutrophils % 50.5 Lymphocytes % 27.2 Monocytes % 15.0 H Eosinophils % 2.9 Basophils % 0.5 Nucleated Red Blood Cells % 0.0 Neutrophils # 4.8 Lymphocytes # 2.6 Monocytes # 1.4 H Eosinophils # 0.3 Basophils # 0.1 Nucleated Red Blood Cells # 0.0 Sodium Level 142 Potassium Level 3.6 Chloride Level 110 Carbon Dioxide Level 21 Anion Gap 15 Blood Urea Nitrogen 7 Creatinine 0.78 Glucose Level 104 Calcium Level 8.2 L Magnesium Level 1.7 Total Bilirubin 1.8 H Direct Bilirubin 0.00 # Indirect Bilirubin 1.8 H Aspartate Amino Transf (AST/SGOT) 51 H Alanine Aminotransferase (ALT/SGPT) 41 Alkaline Phosphatase 136 #H Total Protein 7.4 # Albumin 3.3 # Globulin 4.10 H Albumin/Globulin Ratio 0.80 Test 09/29/17 09:01 09/29/17 11:51 Bedside Glucose 163 98 Medications Medications Current Medications Acetaminophen (Tylenol Tab) 650 mg Q6H PRN PO PAIN LEVEL 1-3 OR FEVER Last administered on 09/27/17 05:40; Admin Dose 650 MG; Start 09/25/17 at 06:30 Morphine Sulfate (morphine) 2 mg Q4H PRN IV SEVERE PAIN LEVEL 7-10 Last administered on 09/29/17 01:49; Admin Dose 2 MG; Start 09/25/17 at 06:30 Diagnostic Test (Pha) (Accu-Chek) 1 ea 02 XX Last administered on 09/29/17 01 :19; Admin Dose 1 EA; Start 09/26/17 at 02:00 Insulin Glargine (Lantus) 12 unit DAILY@08 SC Last administered on 09/29/17 09:08; Admin Dose 12 UNIT; Start 09/25/17 at 08:00 Miscellaneous Information 1 ea NOTE XX ; Start 09/25/17 at 06:30 Glucose (Glutose) 15 gm Q15M PRN PO DECREASED GLUCOSE; Start 09/25/17 at 06:30 Glucose (Glutose) 22.5 gm Q15M PRN PO DECREASED GLUCOSE; Start 09/25/17 at 06: 30 Dextrose (D50w Syringe) 25 ml Q15M PRN IV DECREASED GLUCOSE; Start 09/25/17 at 06:30 Dextrose (D50w Syringe) 50 ml Q15M PRN IV DECREASED GLUCOSE; Start 09/25/17 at 06:30 Glucagon (Glucagen) 1 mg Q15M PRN IM DECREASED GLUCOSE; Start 09/25/17 at 06: 30 Glucose (Glutose) 15 gm Q15M PRN BUCCAL DECREASED GLUCOSE; Start 09/25/17 at 06:30 Guaifenesin (Robitussin Liquid Cup) 200 mg Q4H PRN PO COUGH Last administered on 09/29/17 01:49; Admin Dose 200 MG; Start 09/27/17 at 17:30 Levofloxacin (Levaquin) 750 mg DAILY@06 NGT Last administered on 09/29/17 06: 12; Admin Dose 750 MG; Start 09/28/17 at 14:00; Stop 10/06/17 at 13:59 Trimethoprim/ Sulfamethoxazole (Bactrim (Ds)) 1 tab BID PO Last administered on 09/29/17 09:17; Admin Dose 1 TAB; Start 09/28/17 at 13:00; Stop 10/05/17 at 12:59 MOISES MCNEILL Sep 29, 2017 12:59
[2017-09-30 23:37] LABS: PLATELET ANTIBODY - IGA NEGATIVE (NEGATIVE); PLATELET ANTIBODY - IGG NEGATIVE (NEGATIVE); PLATELET ANTIBODY - IGM NEGATIVE (NEGATIVE)
== END 2017-09-29 16:29 | disposition home or self-care (01) | DRG 871 ==
LOC: E/R 21:59 → TEL 09-25 03:29
PROVIDERS: ADMIT Internal Medicine; ATTEND Internal Medicine
DX: A41.51 Sepsis due to Escherichia coli [E. coli] (principal); N17.0 Acute kidney failure with tubular necrosis; D69.3 Immune thrombocytopenic purpura; E87.2 Acidosis; J91.8 Pleural effusion in other conditions classified elsewhere; A40.3 Sepsis due to Streptococcus pneumoniae; J18.9 Pneumonia, unspecified organism; E11.8 Type 2 diabetes mellitus with unspecified complications; R65.20 Severe sepsis without septic shock; E87.6 Hypokalemia; E83.42 Hypomagnesemia; E80.6 Other disorders of bilirubin metabolism
CPT/HCPCS: 36415; 71010; 71250; 76700; 80048; 80053; 80076; 80202; 81003; 82607; 82746; 82962; 83036; 83605; 83735; 84100; 84484; 85025; 85576; 86022; 86703; 86704; 86709; 86803; 87040; 87086; 87340; 87400; 93005; 96374; 96375; J1815; J1956; J2270; J2543; J3370; J3475; J3480; J7030; J7040